=== PATIENT | female | born 1985 | race Caucasian/White ===

== ENCOUNTER 2018-10-07 07:00 | Outpatient (CLI) | payer OTHER, SELFPAY ==
[2018-10-07 12:07] LABS: ALT 22 U/L (12-78); AST 21 U/L (15-37); Albumin 4.2 g/dL (3.4-5.0); Alkaline Phosphatase 58 U/L (46-116); Anion Gap 10.7 mmol/L (3-11); BUN 16 mg/dL (7-18); Bilirubin, Total 0.4 mg/dL (0.2-1.0); CO2 25.3 mmol/L (21.0-32.0); CREATININE 0.86 mg/dL (0.55-1.02); Calcium 10.4 mg/dL (8.5-10.1); Chloride 104 mmol/L (98-107); Cholesterol 188 mg/dL (50-200); Glucose 89 mg/dL (70-100); HCG Quant, Pregnancy 766 mIU/mL (1-3); HDL Cholesterol 51 mg/dL (40-60); LDL CHOLESTEROL 126 mg/dL (<100); Potassium 4.6 mmol/L (3.5-5.1); Sodium 140 mmol/L (136-145); TSH 2.12 uIU/mL (0.358-3.74); Total Protein 7.6 g/dL (6.4-8.2); Triglyceride 54 mg/dL (30-150)
[2018-10-07 12:28] LABS: FREE T4 0.89 ng/dL (0.76-1.46)
== END 2018-10-07 07:20 ==
PROVIDERS: PCP Nurse Practitioner Family; Visit Provider Nurse Practitioner Family
DX: Z00.00 Encounter for general adult medical examination without abnormal findings (principal); Z32.01 Encounter for pregnancy test, result positive
CPT/HCPCS: 36415; 80053; 80061; 83721; 84439; 84443; 84702

== ENCOUNTER 2018-11-23 12:07 | Outpatient (CLI) | payer OTHER, SELFPAY ==
[2018-11-23 13:00] LABS: Abs Immature Grans 0.02 k/cumm (0.0-0.09); Absolute Basophil Count 0.02 k/cumm (0.0-0.2); Absolute Eosinophil Count 0.11 k/cumm (0.0-0.7); Absolute Monocyte Count 0.71 k/cumm (0.11-0.7); Basophils % 0.2; Eosinophils % 1.1; HCT 41.2 % (36.0-46.0); Immature Grans % 0.2; Lymphocytes % 30.5; Mean Corpuscular Hemoglobin 31.9 pg (27.0-33.0); Mean Corpuscular Volume 93.8 fL (80-95); Mean Platelet Volume 10.3 fL (8.0-11.0); Platelet Count 291 x1000/uL (130-400); RBC 4.39 m/cumm (4.00-5.20); RBC Distribution Width 12.8 % (11.7-14.6); White Blood Cell Count 10.16 k/cumm (4.4-10.8)
[2018-11-23 13:59] LABS: ALT 25 U/L (12-78); AST 19 U/L (15-37); Albumin 4.4 g/dL (3.4-5.0); Alkaline Phosphatase 60 U/L (46-116); Bilirubin, Direct 0.08 mg/dL (0.00-0.20); Bilirubin, Total 0.3 mg/dL (0.2-1.0); CREATININE 0.64 mg/dL (0.55-1.02); TSH (W/Ref FT4) 0.84 uIU/mL (0.358-3.74); Total Protein 8.2 g/dL (6.4-8.2); Uric Acid 3.6 mg/dL (2.6-6.0)
[2018-11-24 10:52] LABS: Hepatitis B Surface Ag Negative (NEGAT); Hepatitis C Ab w Rflx HCV PCR Negative (NEGAT)
[2018-11-24 11:05] LABS: HIV-1/2 Ag & Ab Screen Negative (NEGAT)
[2018-11-24 11:30] LABS: Varicella IgG Antibody Negative
[2018-11-24 11:32] LABS: Rubella IgG Ab (UVM) Positive
[2018-11-24 11:40] LABS: Syphilis Serology (RPR) Negative (Negative)
== END 2018-11-23 12:27 ==
PROVIDERS: PCP Nurse Practitioner Family; Visit Provider Advanced Practice Midwife
DX: Z34.91 Encounter for supervision of normal pregnancy, unspecified, first trimester (principal); Z11.4 Encounter for screening for human immunodeficiency virus [HIV]; Z11.59 Encounter for screening for other viral diseases; Z01.84 Encounter for antibody response examination
CPT/HCPCS: 36415; 80055; 80076; 86787; 86803; 86850; 86900; 86901; 87340; 87389; 82565; 84443; 84550; 86592; 86762

== ENCOUNTER 2018-11-23 12:36 | Outpatient (REF) | payer OTHER, SELFPAY ==
[2018-11-23 13:50] LABS: *AMPHETAMINES SCREEN URINE Negative (Negative); *BARBITURATES SCREEN URINE Negative (Negative); *BENZODIAZEPINES SCREEN URINE Negative (Negative); Cannabinoids THC Negative (Negative); Cocaine Screen,Urine Negative (Negative); METHADONE URINE SCREEN Negative (Negative); OPIATES URINE SCREEN Negative (Negative)
[2018-11-23 13:51] LABS: Tricyclic Antidepressants Negative (Negative)
[2018-11-24 14:25] LABS: Chlamydia Result Negative; GC Result Negative; Specimen Description CERVIX
[2018-11-27 08:25] LABS: Buprenorphine Negative; Norbuprenorphine Negative
== END 2018-11-23 12:56 ==
LOC: LBN 12:36
PROVIDERS: PCP Nurse Practitioner Family; Visit Provider Advanced Practice Midwife
DX: Z34.91 Encounter for supervision of normal pregnancy, unspecified, first trimester (principal); Z11.3 Encounter for screening for infections with a predominantly sexual mode of transmission
CPT/HCPCS: 80307; 87491; 87591; 87086

== ENCOUNTER 2019-01-26 01:03 | Outpatient (CLI) | payer OTHER, SELFPAY ==
--- NOTE | 2019-01-26 13:52 | DI.US_ITS ---
Predicted Gestational Age: Indication/History: SURVEY,Z34.90 20.6 Wks Range: 19.6 to 21.6 Prior US done on: Determined by: First US LMP History EDC by prior US: 06/09/19 For multiple gestations: Baby PLACENTA: Grade: 0-1 Location: Anterior Posterior X PRESENTATION: RT LT LOW LYING PREVIA Cephalic Trans (Head RT LT ) Varied X Breech BIOMETRY: Anatomy Identified: BPD: 47 mm 20.1 wks 4 chamber Heart X Heart Rate 143 BPM HC: 178 mm 20.2 wks LVOT X Post Fossa X AC: 150 mm 20.2 wks RVOT X Ventricles X FL: 32 mm 19.6 wks Stomach X Nose X Bladder X Lips X Cisterna Magna: 3 mm CI: 81.8 Kidneys X Palate X Cerebellum: 1.96 mm 3 vessel cord X Spine X EFW: 330 grms 12TH % Cord Insertion X NS= not seen Composite Age (US) 20.1 wks Many abnormalities cannot be diagnosed. A normal exam does not exclude congenital abnormality. EDC by US 06/14/19 Amniotic Fluid Index: Normal COMMENTS: RUQ: LUQ: RLQ: LLQ: Total: cm Biophysical Profile: Score 0/2 MICHELLE (>2cm) Respirations (>30 sec) Body flexion/extension Extremity flexion/extension TOTAL SCORE The study was carried out according to the usual protocol. Please see the OB ultrasound worksheet for further details.
== END 2019-01-26 01:23 ==
PROVIDERS: PCP Nurse Practitioner Family; Visit Provider Advanced Practice Midwife
DX: Z34.92 Encounter for supervision of normal pregnancy, unspecified, second trimester (principal)
CPT/HCPCS: 76805

== ENCOUNTER 2019-03-24 07:52 | Outpatient (CLI) | payer OTHER, SELFPAY ==
[2019-03-24 08:08] LABS: HCT 36.1 % (36.0-46.0); Mean Corp. HGB Concentration 33.2 g/dL (32.0-36.0); Mean Corpuscular Volume 99.2 fL (80-95); Mean Platelet Volume 10.4 fL (8.0-11.0); Platelet Count 262 x1000/uL (130-400); RBC 3.64 m/cumm (4.00-5.20); RBC Distribution Width 12.6 % (11.7-14.6); White Blood Cell Count 10.71 k/cumm (4.4-10.8)
[2019-03-24 08:18] LABS: Glucose,1 Hr (Glucola) 87 mg/dL (80-140)
== END 2019-03-24 08:12 ==
PROVIDERS: PCP Nurse Practitioner Family; Visit Provider Advanced Practice Midwife
DX: Z34.93 Encounter for supervision of normal pregnancy, unspecified, third trimester (principal)
CPT/HCPCS: 36415; 82950; 85027

== ENCOUNTER 2019-04-21 09:07 | Outpatient (CLI) | payer OTHER, SELFPAY ==
[2019-04-21 10:04] LABS: HCT 37.1 % (36.0-46.0); HGB 12.7 g/dL (12.0-15.5); Mean Corp. HGB Concentration 34.2 g/dL (32.0-36.0); Mean Corpuscular Hemoglobin 33.7 pg (27.0-33.0); Mean Corpuscular Volume 98.4 fL (80-95); Mean Platelet Volume 10.5 fL (8.0-11.0); Platelet Count 268 x1000/uL (130-400); RBC 3.77 m/cumm (4.00-5.20); RBC Distribution Width 12.9 % (11.7-14.6); White Blood Cell Count 11.57 k/cumm (4.4-10.8)
[2019-04-21 10:58] LABS: ALT 58 U/L (14-59); AST 40 U/L (15-37); Albumin 3.1 g/dL (3.4-5.0); Alkaline Phosphatase 92 U/L (46-116); BUN 6 mg/dL (7-18); Bilirubin, Total 0.2 mg/dL (0.2-1.0); CREATININE 0.63 mg/dL (0.55-1.02); Calcium 9.3 mg/dL (8.5-10.1); Chloride 103 mmol/L (98-107); Glucose 76 mg/dL (70-100); Potassium 4.3 mmol/L (3.5-5.1); Sodium 138 mmol/L (136-145); Total Protein 6.8 g/dL (6.4-8.2); Uric Acid 4.1 mg/dL (2.6-6.0)
[2019-04-21 14:52] LABS: COMMENT (LAB VIEW ONLY) 27.39 mg/dL; Prot/Crea Ur Ratio 0.29
== END 2019-04-21 09:27 ==
LOC: LBO 09:16 → LBN 13:59
PROVIDERS: PCP Nurse Practitioner Family; Visit Provider Advanced Practice Midwife
DX: O14.93 Unspecified pre-eclampsia, third trimester (principal)
CPT/HCPCS: 36415; 80053; 85027; 82565; 84156; 84550

== ENCOUNTER 2019-04-21 09:22 | Outpatient (CLI) | payer OTHER, SELFPAY | END 2019-04-21 09:42 | PROVIDERS: PCP Nurse Practitioner Family; Visit Provider Advanced Practice Midwife | DX: O26.893 Other specified pregnancy related conditions, third trimester (principal); R03.0 Elevated blood-pressure reading, without diagnosis of hypertension; Z87.59 Personal history of other complications of pregnancy, childbirth and the puerperium; Z82.49 Family history of ischemic heart disease and other diseases of the circulatory system; Z3A.33 33 weeks gestation of pregnancy | CPT/HCPCS: 59025 ==

== ENCOUNTER 2019-04-22 16:03 | Outpatient (REF) | payer OTHER, SELFPAY ==
[2019-04-22 17:15] LABS: PROTEIN < 6.0 mg/dL (0.0-11.9); Total Volume 4250 ml
== END 2019-04-22 16:23 ==
LOC: LBN 16:03
PROVIDERS: PCP Nurse Practitioner Family; Visit Provider Advanced Practice Midwife
DX: Z34.93 Encounter for supervision of normal pregnancy, unspecified, third trimester (principal)
CPT/HCPCS: 81050; 84155

== ENCOUNTER 2019-04-23 09:25 | Outpatient (CLI) | payer OTHER, SELFPAY ==
[2019-04-23 09:54] LABS: HCT 36.2 % (36.0-46.0); HGB 12.1 g/dL (12.0-15.5); Mean Corp. HGB Concentration 33.4 g/dL (32.0-36.0); Mean Corpuscular Hemoglobin 33.2 pg (27.0-33.0); Mean Corpuscular Volume 99.5 fL (80-95); Mean Platelet Volume 10.5 fL (8.0-11.0); Platelet Count 264 x1000/uL (130-400); RBC 3.64 m/cumm (4.00-5.20); White Blood Cell Count 11.26 k/cumm (4.4-10.8)
[2019-04-23 10:59] LABS: ALT 50 U/L (14-59); AST 32 U/L (15-37); Albumin 2.8 g/dL (3.4-5.0); Alkaline Phosphatase 89 U/L (46-116); Anion Gap 10.1 mmol/L (3-11); BUN 8 mg/dL (7-18); Bilirubin, Total 0.2 mg/dL (0.2-1.0); CO2 24.9 mmol/L (21.0-32.0); CREATININE 0.64 mg/dL (0.55-1.02); Calcium 8.8 mg/dL (8.5-10.1); Chloride 104 mmol/L (98-107); Glucose 77 mg/dL (70-100); Potassium 4.2 mmol/L (3.5-5.1); Sodium 139 mmol/L (136-145); Total Protein 6.4 g/dL (6.4-8.2); Uric Acid 4.2 mg/dL (2.6-6.0)
[2019-04-23 11:52] LABS: PROTEIN < 6.0 mg/dL
[2019-04-23 11:53] LABS: COMMENT (LAB VIEW ONLY) < 13.00 mg/dL
== END 2019-04-23 09:45 ==
PROVIDERS: PCP Nurse Practitioner Family; Visit Provider Advanced Practice Midwife
DX: O14.93 Unspecified pre-eclampsia, third trimester (principal)
CPT/HCPCS: 36415; 80053; 85027; 82565; 84156; 84550

== ENCOUNTER 2019-04-23 11:12 | Outpatient (CLI) | payer OTHER, SELFPAY ==
[2019-04-23] MEDS: Betamet Acet/Betamet Na Ph Inj. 30 MG/5 ML 12 MG IM (12:21)
== END 2019-04-23 11:32 ==
PROVIDERS: PCP Nurse Practitioner Family; Visit Provider Advanced Practice Midwife
DX: O13.3 Gestational [pregnancy-induced] hypertension without significant proteinuria, third trimester (principal); Z3A.33 33 weeks gestation of pregnancy
CPT/HCPCS: 59025; J0702

== ENCOUNTER 2019-04-24 14:19 | Outpatient (CLI) | payer OTHER, SELFPAY ==
[2019-04-24] MEDS: Betamet Acet/Betamet Na Ph Inj. 30 MG/5 ML 12 MG IM (14:29)
== END 2019-04-24 14:39 ==
PROVIDERS: PCP Nurse Practitioner Family; Visit Provider Advanced Practice Midwife
DX: O13.3 Gestational [pregnancy-induced] hypertension without significant proteinuria, third trimester (principal); Z3A.33 33 weeks gestation of pregnancy
CPT/HCPCS: 96372; G0378; J0702

== ENCOUNTER 2019-04-26 09:15 | Outpatient (CLI) | payer OTHER, SELFPAY | END 2019-04-26 09:35 | PROVIDERS: PCP Nurse Practitioner Family; Visit Provider Advanced Practice Midwife | DX: O13.3 Gestational [pregnancy-induced] hypertension without significant proteinuria, third trimester (principal); Z3A.33 33 weeks gestation of pregnancy | CPT/HCPCS: 59025 ==

== ENCOUNTER 2019-04-29 13:11 | Outpatient (CLI) | payer OTHER, SELFPAY ==
[2019-04-29 13:32] LABS: HCT 38.7 % (36.0-46.0); Mean Corp. HGB Concentration 33.6 g/dL (32.0-36.0); Mean Corpuscular Hemoglobin 33.2 pg (27.0-33.0); Mean Platelet Volume 10.4 fL (8.0-11.0); Platelet Count 271 x1000/uL (130-400); RBC 3.91 m/cumm (4.00-5.20); White Blood Cell Count 11.54 k/cumm (4.4-10.8)
[2019-04-29 14:25] LABS: COMMENT (LAB VIEW ONLY) 17.21 mg/dL; PROTEIN < 6.0 mg/dL
[2019-04-29 14:36] LABS: ALT 33 U/L (14-59); AST 25 U/L (15-37); Albumin 3.1 g/dL (3.4-5.0); Alkaline Phosphatase 99 U/L (46-116); Anion Gap 9.7 mmol/L (3-11); BUN 8 mg/dL (7-18); Bilirubin, Total 0.2 mg/dL (0.2-1.0); CO2 27.3 mmol/L (21.0-32.0); CREATININE 0.71 mg/dL (0.55-1.02); Calcium 10.2 mg/dL (8.5-10.1); Chloride 101 mmol/L (98-107); Glucose 84 mg/dL (70-100); Sodium 138 mmol/L (136-145); Total Protein 6.8 g/dL (6.4-8.2); Uric Acid 4.3 mg/dL (2.6-6.0)
== END 2019-04-29 13:31 ==
PROVIDERS: Advanced Practice Midwife; PCP Nurse Practitioner Family; Visit Provider Advanced Practice Midwife
DX: O14.93 Unspecified pre-eclampsia, third trimester (principal); O13.3 Gestational [pregnancy-induced] hypertension without significant proteinuria, third trimester
CPT/HCPCS: 36415; 80053; 85027; 82565; 84156; 84550

== ENCOUNTER 2019-04-29 13:33 | Outpatient (CLI) | payer OTHER, SELFPAY | END 2019-04-29 13:53 | PROVIDERS: PCP Nurse Practitioner Family; Visit Provider Advanced Practice Midwife | DX: O13.3 Gestational [pregnancy-induced] hypertension without significant proteinuria, third trimester (principal); Z3A.34 34 weeks gestation of pregnancy | CPT/HCPCS: 59025 ==

== ENCOUNTER 2019-05-03 13:12 | Outpatient (CLI) | payer OTHER, SELFPAY | END 2019-05-03 13:32 | PROVIDERS: PCP Nurse Practitioner Family; Visit Provider Advanced Practice Midwife | DX: O13.3 Gestational [pregnancy-induced] hypertension without significant proteinuria, third trimester (principal); Z3A.34 34 weeks gestation of pregnancy | CPT/HCPCS: 59025 ==

== ENCOUNTER 2019-05-06 13:11 | Outpatient (CLI) | payer OTHER, SELFPAY | END 2019-05-06 13:31 | PROVIDERS: PCP Nurse Practitioner Family; Visit Provider Advanced Practice Midwife | DX: O13.3 Gestational [pregnancy-induced] hypertension without significant proteinuria, third trimester (principal); Z3A.35 35 weeks gestation of pregnancy | CPT/HCPCS: 59025 ==

== ENCOUNTER 2019-05-06 14:52 | Outpatient (CLI) | payer OTHER, SELFPAY ==
[2019-05-06 15:37] LABS: HCT 37.1 % (36.0-46.0); HGB 12.4 g/dL (12.0-15.5); Mean Corp. HGB Concentration 33.4 g/dL (32.0-36.0); Mean Corpuscular Hemoglobin 33.2 pg (27.0-33.0); Mean Corpuscular Volume 99.5 fL (80-95); Mean Platelet Volume 10.5 fL (8.0-11.0); Platelet Count 254 x1000/uL (130-400); RBC 3.73 m/cumm (4.00-5.20); RBC Distribution Width 13.1 % (11.7-14.6); White Blood Cell Count 11.56 k/cumm (4.4-10.8)
[2019-05-06 17:11] LABS: ALT 46 U/L (14-59); AST 27 U/L (15-37); Albumin 2.8 g/dL (3.4-5.0); Alkaline Phosphatase 103 U/L (46-116); Anion Gap 11.2 mmol/L (3-11); BUN 8 mg/dL (7-18); Bilirubin, Total 0.2 mg/dL (0.2-1.0); CO2 24.8 mmol/L (21.0-32.0); CREATININE 0.62 mg/dL (0.55-1.02); Chloride 104 mmol/L (98-107); Glucose 84 mg/dL (70-100); Potassium 3.9 mmol/L (3.5-5.1); Sodium 140 mmol/L (136-145); Total Protein 6.2 g/dL (6.4-8.2); Uric Acid 4.1 mg/dL (2.6-6.0)
== END 2019-05-06 15:12 ==
PROVIDERS: PCP Nurse Practitioner Family; Visit Provider Advanced Practice Midwife
DX: O14.93 Unspecified pre-eclampsia, third trimester (principal); O13.3 Gestational [pregnancy-induced] hypertension without significant proteinuria, third trimester
CPT/HCPCS: 36415; 80053; 85027; 84550

== ENCOUNTER 2019-05-06 16:32 | Outpatient (REF) | payer OTHER, SELFPAY ==
[2019-05-06 18:21] LABS: PROTEIN < 6.0 mg/dL
== END 2019-05-06 16:52 ==
LOC: LBN 16:32
PROVIDERS: PCP Nurse Practitioner Family; Visit Provider Advanced Practice Midwife
DX: O14.93 Unspecified pre-eclampsia, third trimester (principal)
CPT/HCPCS: 82565; 84156

== ENCOUNTER 2019-05-10 01:52 | Outpatient (CLI) | payer OTHER, SELFPAY ==
--- NOTE | 2019-05-10 14:57 | DI.US_ITS ---
EXAM: US OB MICHELLE WEIGHT CLINICAL HISTORY: Gestational Hypertension,z34.90 TECHNIQUE: Ultrasound performed using standard protocol. COMPARISON: No exams were available for comparison FINDINGS: There is a single living intrauterine gestation. Estimated sonographic age is 33 weeks 4 days. The fetus is in the cephalic presentation. heart rate is 131 beats per minute. Estimated feta l weight is 2187 grams. The placenta is posterior without evidence of previa. Amniotic fluid index is 19.9 cm. This is within normal limits. Umbilical artery Doppler examination is between the 50th and 95th percentiles. IMPRESSION: Single living intrauterine gestation. Estimated sonographic age is 33 weeks 4 days.
== END 2019-05-10 02:12 ==
PROVIDERS: PCP Nurse Practitioner Family; Visit Provider Advanced Practice Midwife
DX: O13.3 Gestational [pregnancy-induced] hypertension without significant proteinuria, third trimester (principal)
CPT/HCPCS: 76816

== ENCOUNTER 2019-05-10 15:59 | Outpatient (CLI) | payer OTHER, SELFPAY | END 2019-05-10 16:19 | PROVIDERS: PCP Nurse Practitioner Family; Visit Provider Advanced Practice Midwife | DX: O13.3 Gestational [pregnancy-induced] hypertension without significant proteinuria, third trimester (principal); Z3A.35 35 weeks gestation of pregnancy | CPT/HCPCS: 59025 ==

== ENCOUNTER 2019-05-13 10:34 | Outpatient (CLI) | payer OTHER, SELFPAY | END 2019-05-13 10:54 | PROVIDERS: PCP Nurse Practitioner Family; Visit Provider Advanced Practice Midwife | DX: O13.3 Gestational [pregnancy-induced] hypertension without significant proteinuria, third trimester (principal); Z3A.36 36 weeks gestation of pregnancy | CPT/HCPCS: 59025 ==

== ENCOUNTER 2019-05-13 14:53 | Outpatient (REF) | payer OTHER, SELFPAY ==
[2019-05-13 17:21] LABS: PROTEIN 6.6 mg/dL
[2019-05-13 17:47] LABS: Prot/Crea Ur Ratio 0.21
[2019-05-13 18:26] LABS: *AMPHETAMINES SCREEN URINE Negative (Negative); *BARBITURATES SCREEN URINE Negative (Negative); *BENZODIAZEPINES SCREEN URINE Negative (Negative); Cannabinoids THC Negative (Negative); Cocaine Screen,Urine Negative (Negative); METHADONE URINE SCREEN Negative (Negative); OPIATES URINE SCREEN Negative (Negative)
[2019-05-13 18:34] LABS: Tricyclic Antidepressants Negative (Negative)
[2019-05-17 11:49] LABS: Buprenorphine Negative; Norbuprenorphine Negative
== END 2019-05-13 15:13 ==
LOC: LBN 14:53
PROVIDERS: PCP Nurse Practitioner Family; Visit Provider Advanced Practice Midwife
DX: O13.3 Gestational [pregnancy-induced] hypertension without significant proteinuria, third trimester (principal); Z36.85 Encounter for antenatal screening for Streptococcus B; O14.93 Unspecified pre-eclampsia, third trimester
CPT/HCPCS: 80307; 82565; 84156; 87081

== ENCOUNTER 2019-05-13 15:08 | Outpatient (CLI) | payer OTHER, SELFPAY ==
[2019-05-13 15:50] LABS: HCT 37.7 % (36.0-46.0); HGB 12.8 g/dL (12.0-15.5); Mean Corpuscular Hemoglobin 33.7 pg (27.0-33.0); Mean Corpuscular Volume 99.2 fL (80-95); Mean Platelet Volume 10.5 fL (8.0-11.0); Platelet Count 260 x1000/uL (130-400); RBC Distribution Width 13.2 % (11.7-14.6); White Blood Cell Count 12.29 k/cumm (4.4-10.8)
[2019-05-13 17:28] LABS: ALT 38 U/L (14-59); AST 24 U/L (15-37); Alkaline Phosphatase 115 U/L (46-116); Anion Gap 9.2 mmol/L (3-11); BUN 8 mg/dL (7-18); Bilirubin, Total 0.1 mg/dL (0.2-1.0); CO2 24.8 mmol/L (21.0-32.0); CREATININE 0.64 mg/dL (0.55-1.02); Calcium 9.5 mg/dL (8.5-10.1); Chloride 103 mmol/L (98-107); Glucose 79 mg/dL (70-100); Potassium 4.1 mmol/L (3.5-5.1); Sodium 137 mmol/L (136-145); Total Protein 6.6 g/dL (6.4-8.2)
== END 2019-05-13 15:28 ==
PROVIDERS: PCP Nurse Practitioner Family; Visit Provider Advanced Practice Midwife
DX: O14.93 Unspecified pre-eclampsia, third trimester (principal)
CPT/HCPCS: 36415; 80053; 85027

== ENCOUNTER 2019-05-17 01:29 | Outpatient (CLI) | payer OTHER, SELFPAY ==
--- NOTE | 2019-05-17 09:11 | DI.US_ITS ---
EXAM: US OB MICHELLE UMBILICAL ARTERY CLINICAL HISTORY: IUGR, TECHNIQUE: Ultrasound performed using standard protocol. COMPARISON: US OB 2-3 trimester from 01/26/2019 US OB MICHELLE WEIGHT from 05/10/2019 FINDINGS: The fetus is in cephalic position. The placenta is posterior and grade 1-2. The amniotic fluid inde x is 14.8. Umbilical artery measurements were performed with values corresponding to the 50th to 95t h percentile range. IMPRESSION: MICHELLE and umbilical artery Doppler measurements are within the normal range.
== END 2019-05-17 01:49 ==
PROVIDERS: PCP Nurse Practitioner Family; Visit Provider Advanced Practice Midwife
DX: O36.5993 Maternal care for other known or suspected poor fetal growth, unspecified trimester, fetus 3 (principal); Z36.89 Encounter for other specified antenatal screening
CPT/HCPCS: 76816; 76820

== ENCOUNTER 2019-05-17 08:03 | Outpatient (CLI) | payer OTHER, SELFPAY | END 2019-05-17 08:23 | PROVIDERS: PCP Nurse Practitioner Family; Visit Provider Advanced Practice Midwife | DX: O13.3 Gestational [pregnancy-induced] hypertension without significant proteinuria, third trimester (principal); Z3A.36 36 weeks gestation of pregnancy | CPT/HCPCS: 59025 ==

== ENCOUNTER 2019-05-19 18:03 | Inpatient (IN) | payer OTHER, SELFPAY ==
[2019-05-19] MEDS: miSOPROStol 25 MCG TAB 50 MCG PO ×2 (18:16→22:23)
[2019-05-19 18:48] LABS: HCT 37.2 % (36.0-46.0); HGB 12.5 g/dL (12.0-15.5); Mean Corp. HGB Concentration 33.6 g/dL (32.0-36.0); Mean Corpuscular Volume 98.2 fL (80-95); Mean Platelet Volume 10.6 fL (8.0-11.0); Platelet Count 265 x1000/uL (130-400); RBC 3.79 m/cumm (4.00-5.20); RBC Distribution Width 13.1 % (11.7-14.6); White Blood Cell Count 11.78 k/cumm (4.4-10.8)
[2019-05-19 20:00] LABS: ALT 29 U/L (14-59); AST 20 U/L (15-37); Albumin 2.7 g/dL (3.4-5.0); Alkaline Phosphatase 111 U/L (46-116); Anion Gap 11.5 mmol/L (3-11); BUN 6 mg/dL (7-18); Bilirubin, Total 0.2 mg/dL (0.2-1.0); CO2 23.5 mmol/L (21.0-32.0); CREATININE 0.64 mg/dL (0.55-1.02); Calcium 9.1 mg/dL (8.5-10.1); Chloride 105 mmol/L (98-107); Glucose 82 mg/dL (70-100); Potassium 3.9 mmol/L (3.5-5.1); Sodium 140 mmol/L (136-145)
[2019-05-20 00:57] LABS: PROTEIN 10.6 mg/dL
[2019-05-20 01:00] LABS: Prot/Crea Ur Ratio 0.14
[2019-05-20] MEDS: miSOPROStol 25 MCG TAB 50 MCG PO (08:19)
[2019-05-20] MEDS: Normal Saline Flush 10 ML SYR (12:51)
[2019-05-20] MEDS: miSOPROStol 50 MCG TAB PO (13:05)
[2019-05-20] MEDS: Penicillin G POT. 5,000,000 UNITS in Normal Saline 100 ML 200 UNITS IVPB (17:40)
[2019-05-20] MEDS: Lactated Ringers 1,000 ML 125 ML IV (17:40)
[2019-05-20] MEDS: Penicillin G POT. 3,000,000 UNITS in Normal Saline 50 ML 100 UNITS IVPB (21:22)
[2019-05-21] MEDS: Normal Saline Flush 10 ML SYR IVP ×2 (02:13→06:15)
[2019-05-21] MEDS: Penicillin G POT. 3,000,000 UNITS in Normal Saline 50 ML 100 UNITS IVPB ×4 (02:17→14:18)
[2019-05-21] MEDS: Lactated Ringers 1,000 ML 125 ML IV ×2 (06:15→14:19)
[2019-05-21] MEDS: FentaNYL/ROPIvacaine 2 mcg/ml and 0.1% 200 ML CADD Cassette EP (10:13)
[2019-05-21] MEDS: Hamamelis Leaf/Glycerin 100 EACH BOX PR (16:14)
[2019-05-22] MEDS: Acetaminophen 325 MG TAB 650 MG PO (00:15)
== END 2019-05-24 12:48 | disposition home or self-care (01) | DRG 807 ==
PROVIDERS: Admitting Provider Advanced Practice Midwife; PCP Nurse Practitioner Family; Visit Provider Advanced Practice Midwife
DX: O13.4 Gestational [pregnancy-induced] hypertension without significant proteinuria, complicating childbirth (principal); Z37.0 Single live birth; Z3A.37 37 weeks gestation of pregnancy; O99.824 Streptococcus B carrier state complicating childbirth; Z79.82 Long term (current) use of aspirin; O75.81 Maternal exhaustion complicating labor and delivery; O32.6XX0 Maternal care for compound presentation, not applicable or unspecified; O69.3XX0 Labor and delivery complicated by short cord, not applicable or unspecified
CPT/HCPCS: 36415; 80053; 85027; 86850; 86900; 86901; 59200; 82565; 84156; J2540; J3490

== ENCOUNTER 2019-07-02 13:55 | Outpatient (REF) | payer OTHER, SELFPAY ==
--- NOTE | 2019-07-02 13:30 | PAPFT_PTH ---
PATIENT: Eli Tejada LOC: BE U#:[id number] AGE/SX: 33/F ROOM: RE07/02/[address]: Nahum Lyles RN : 1985 BED: DIS: 07/02/2019 SPEC #: [id number] RECD: 07/02/19 18:30 STATUS: MARIA TERESA REJulius #: [id number] TONY: 07/02/19 13:[address]: Nahum Lyles DEPT: [facility] Cytology RECD BY: Alejandra Bloom ENTERED: 07/02/19 18:30 SP TYPE: PAPFT JOURDAN DR: Sonja Mahoney, RENNY Tissues: 1 - CX/ENDOCX FOR PAP SMEARS Procedures: PAP THIN PREP/UVM Screening HPV DNA PROBE Comments: [id number]
== END 2019-07-02 14:15 ==
LOC: LBN 13:55
PROVIDERS: PCP Nurse Practitioner Family; Visit Provider Advanced Practice Midwife
DX: Z12.4 Encounter for screening for malignant neoplasm of cervix (principal)
CPT/HCPCS: 88142; 87624

== ENCOUNTER 2020-01-12 04:24 | Outpatient (CLI) | payer OTHER, SELFPAY ==
[2020-01-12 12:35] LABS: Abs Immature Grans 0.01 k/cumm (0.0-0.09); Absolute Basophil Count 0.03 k/cumm (0.0-0.2); Absolute Eosinophil Count 0.21 k/cumm (0.0-0.7); Absolute Lymphocyte Count 3.58 k/cumm (1.2-3.4); Absolute Monocyte Count 0.67 k/cumm (0.11-0.7); Absolute Neutrophil Count 2.66 k/cumm (1.2-6.7); Basophils % 0.4; Eosinophils % 2.9; HCT 43.4 % (36.0-46.0); HGB 14.4 g/dL (12.0-15.5); Immature Grans % 0.1 %; Mean Corp. HGB Concentration 33.2 g/dL (32.0-36.0); Mean Corpuscular Hemoglobin 31.3 pg (27.0-33.0); Mean Corpuscular Volume 94.3 fL (80-95); Mean Platelet Volume 9.7 fL (8.0-11.0); Monocytes % 9.4; Neutrophils % 37.2; Platelet Count 326 x1000/uL (130-400); RBC Distribution Width 12.9 % (11.7-14.6); White Blood Cell Count 7.16 k/cumm (4.4-10.8)
[2020-01-12 14:15] LABS: ALT 26 U/L (14-59); AST 18 U/L (15-37); Albumin 4.5 g/dL (3.4-5.0); Alkaline Phosphatase 87 U/L (46-116); Anion Gap 10.3 mmol/L (3-11); BUN 14 mg/dL (7-18); Bilirubin, Total 0.3 mg/dL (0.2-1.0); CO2 28.7 mmol/L (21.0-32.0); CREATININE 1.04 mg/dL (0.55-1.02); Calcium 10.1 mg/dL (8.5-10.1); Chloride 101 mmol/L (98-107); FREE T4 0.83 ng/dL (0.76-1.46); Glucose 94 mg/dL (74-106); Potassium 4.2 mmol/L (3.5-5.1); Sodium 140 mmol/L (136-145)
== END 2020-01-12 04:44 ==
PROVIDERS: PCP Nurse Practitioner Family; Visit Provider Nurse Practitioner Family
DX: R53.83 Other fatigue (principal)
CPT/HCPCS: 36415; 80053; 84439; 84443; 85025

== ENCOUNTER 2021-12-20 02:30 | Outpatient (CLI) | payer OTHER, SELFPAY ==
[2021-12-20 08:42] LABS: CREATININE 0.9 mg/dL (0.55-1.02); Calculated LDL 111 mg/dL (<100); Cholesterol 171 mg/dL (<200); HDL Cholesterol 38 mg/dL (40-60); Triglyceride 110 mg/dL (<150)
== END 2021-12-20 02:31 | disposition home or self-care (01) ==
LOC: LBO 02:30
PROVIDERS: PCP Nurse Practitioner Family; Visit Provider Nurse Practitioner Family
DX: R79.89 Other specified abnormal findings of blood chemistry (principal); Z13.220 Encounter for screening for lipoid disorders
CPT/HCPCS: 36415; 80061; 82565

== ENCOUNTER 2021-12-21 16:06 | Outpatient (REF) | payer OTHER, SELFPAY ==
--- NOTE | 2021-12-21 15:45 | PAPFT_PTH ---
PATIENT: Eli Tejada LOC: BE U#:[id number] AGE/SX: 36/F ROOM: RE12/21/[address]: Sheryl Blair MD : 1985 BED: DIS: 12/21/2021 SPEC #: [id number] RECD: 12/21/21 17:35 STATUS: MARIA TERESA REJulius #: [id number] TONY: 12/21/21 15:[address]: Sheryl Blair DEPT: [facility] Cytology RECD BY: Alejandra Bloom ENTERED: 12/21/21 17:35 SP TYPE: PAPFT JOURDAN DR: Sonja Mahoney, RENNY Tissues: 1 - CX/ENDOCX FOR PAP SMEARS Procedures: PAP THIN PREP/UVM Screening HPV DNA PROBE Comments: [id number]
== END 2021-12-21 16:07 | disposition home or self-care (01) ==
LOC: LBN 16:06
PROVIDERS: PCP Nurse Practitioner Family; Visit Provider Obstetrics & Gynecology
DX: Z12.4 Encounter for screening for malignant neoplasm of cervix (principal); Z11.51 Encounter for screening for human papillomavirus (HPV)
CPT/HCPCS: 88142; 87624

== ENCOUNTER 2023-04-08 02:42 | Outpatient (CLI) | payer BC, SELFPAY ==
[2023-04-08 12:28] LABS: Anion Gap 9.6 mmol/L (3-11); BUN 12 mg/dL (7-18); CO2 26.4 mmol/L (21.0-32.0); CREATININE 0.9 mg/dL (0.55-1.02); Calcium 9.6 mg/dL (8.5-10.1); Chloride 101 mmol/L (98-107); Glucose 88 mg/dL (74-106); Potassium 3.8 mmol/L (3.5-5.1); Sodium 137 mmol/L (136-145)
== END 2023-04-08 02:43 | disposition home or self-care (01) ==
LOC: LBO 02:42
PROVIDERS: PCP Nurse Practitioner Family; Visit Provider Nurse Practitioner Family
DX: I10 Essential (primary) hypertension (principal)
CPT/HCPCS: 36415; 80048

== ENCOUNTER 2023-12-30 05:01 | Outpatient (CLI) | payer OTHER, SELFPAY ==
[2023-12-30 12:31] LABS: Hemoglobin A1C 5.4 % (<5.7)
[2023-12-30 12:54] LABS: Anion Gap 7.3 mmol/L (3-11); BUN 9 mg/dL (7-18); CO2 30.7 mmol/L (21.0-32.0); CREATININE 0.9 mg/dL (0.55-1.02); Calcium 9.7 mg/dL (8.5-10.1); Calculated LDL 125 mg/dL (<100); Chloride 101 mmol/L (98-107); Cholesterol 193 mg/dL (<200); Estimated GFR 84.97 (mL/min/1.73m2); Glucose 83 mg/dL (74-106); HDL Cholesterol 43 mg/dL (40-60); Potassium 3.7 mmol/L (3.5-5.1); Sodium 139 mmol/L (136-145); Triglyceride 129 mg/dL (<150)
[2023-12-31 09:52] LABS: HBs Antibody, Quant 803.4 mIU/mL (See Note); Hepatitis B Surface Ab Positive (See Note)
[2023-12-31 10:46] LABS: HIV-1/2 Ag & Ab Screen Negative (Negative)
== END 2023-12-30 05:02 | disposition home or self-care (01) ==
LOC: LBO 05:02
PROVIDERS: PCP Nurse Practitioner Family; Visit Provider Nurse Practitioner Family
DX: Z00.00 Encounter for general adult medical examination without abnormal findings (principal)
CPT/HCPCS: 36415; 80048; 80061; 86706; 87389; 83036

== ENCOUNTER 2024-05-12 21:26 | Emergency (ER) | payer OTHER, SELFPAY ==
--- NOTE | 2024-05-12 21:15 | RT.EKG_ITS ---
APPROVED REPORT Exam: Resting ECG Reason for Exam: Chest pain Patient Location: E HR:81 bpm ECG Measurements Heart Rate 81 AXIS KS 117 P 30 QRSd 95 QRS -16 QT 388 T 42 QTc 451 Conclusion Sinus rhythm...normal P axis, V-rate 60- 99 Narrow complex normal sinus rhythm at a rate of 81. Normal axis. Shortened KS interval 172 ms. No obvious delta wave. QTc within normal limits. T wave flattening in lead aVL and lead III. No acute ST segment abnormalities. No acute injury pattern. No prior for comparison.
[2024-05-12 21:32] VITALS: BP 171/112; PULSE 98; RESP 20; O2SAT 98
--- NOTE | 2024-05-12 21:39 | W.ED.GENAD ---
Discharge Plan Disposition Patient Disposition: Home Discharge Details Clinical Impression: Elevated blood pressure reading with diagnosis of hypertension Primary Care Provider: Sonja Mahoney ED Provider: Brandon Dang Home Meds and New Rx's Prescriptions: Continued othrfssyccfv-yorb-mwnat acid 18-400 mg-mcg tablet 1 tab PO DAILY norethindrone (contraceptive) 0.35 mg tablet 0.35 mg PO DAILY Qty: 84 3RF acetaminophen [Tylenol Extra Strength] 500 mg tablet 500 mg PO Q6H PRN Airborne (ascorbate sodium) 334-1.7 mg tablet,chewable 2 tab PO DAILY bupropion HCl 150 mg tablet extended release 24 hr 300 mg PO DAILY Qty: 180 3RF losartan 50 mg tablet 50 mg PO DAILY Qty: 90 3RF Discharge Instructions Instructions: DASH diet Additional Instructions: You are seen in the emergency department for your high blood pressure. Your blood pressure improved without intervention. As we discussed if you pass out develop chest pain or lightheadedness please return to the emergency department. Otherwise please follow-up with your primary care provider next week. Please continue taking your home medications as previously prescribed. HPI General Date/Time Provider Initiated Documentation: 05/12/24 21:39. HPI Narrative: MDM This is an overall very well-appearing normothermic and not tachycardic 38-year-old female with elevated blood pressure but history and physical reassuring against any endorgan damage for which patient will be discharged with empiric trial of expectant outpatient management. No pain or proportion to suggest necrotizing soft tissue infection. Patient did not have a sudden onset headache to suggest increased risk for subarachnoid hemorrhage so I did not feel that she required a CT scan. No nuchal rigidity to suggest meningitis. No recent generator exposure to suggest increased risk for carbon monoxide toxicity. No chest pain to suggest ACS. No tachycardia calf pain nor shortness of breath to suggest PE so I did not send a D-dimer. No history of falls to suggest increased risk for intracranial hemorrhage. No chiropractic manipulation or neck pain to suggest cervical arterial dissection. I considered obtaining lab work however the patient has not been vomiting so my suspicion for any acute electrolyte abnormalities is low. Patient has been urinating normally without dysuria and frequency so my suspicion is low for UTI and proteinuria so I did not feel that she required assessment of her urinalysis. No cough no fever to suggest pneumonia. Patient and her and I discussed that she should continue to monitor her symptoms at home. We discussed that she should record her blood pressure daily and follow-up next week with her primary care provider. We discussed that if she developed chest pain shortness of breath any focal areas of weakness or if she had any syncopal episodes that she should return immediately to the ED. Patient's blood pressure improved without intervention in the ED.She understood her return indications and was discharged with empiric trial of expectant outpatient management. HPI This is a 38-year-old female with a history of hypertension arrived to the emergency department via private vehicle in setting of elevated blood pressure. Patient reports that over the course of multiple hours this evening at home she had persistently elevated blood pressures. She had had some chest discomfort and felt that she might have had a strain yesterday. She had been stacking wood recently. She also noted that she had an episode of a headache. She has a history of migraine headaches. She denies headache now. She denies chest pain dizziness vomiting visual changes shortness of breath. She denies routine tobacco, ethanol, and illicits. Family history significant for coronary artery disease in the patient's mother. She has had no recent fevers. No recent change in her medications. This evening she felt weak and she felt cold chills moving down from her head. She did not lose consciousness. She is not recently . Exam General: Well-appearing in no acute distress speaking in complete sentences. Head: Normocephalic, atraumatic. Eye:[Pupils equal, round reactive to light.] Extraocular eye movements intact. No conjunctival injection. No scleral icterus. Ear, nose, mouth, throat: Grossly normal inspection. Normal voice, handling secretions normally. Neck: Trachea midline.No nuchal rigidity. Cardiovascular: Well-perfused distal extremities.Regular rate and rhythm. Respiratory: Nonlabored respiration.Clear lungs bilaterally. Gastrointestinal: Nondistended abdomen. Musculoskeletal: No edema. Moving all 4 extremities spontaneously. Skin: Normal for age and race, grossly normal temperature and turgor. No acute rash. Neurologic: Alert and appropriate, no apparent acute deficits.Cranial nerves II to XII intact grossly. No dysmetria. No dysdiadochokinesia. Psychiatric: Mood and manner are appropriate. Grooming and personal hygiene are appropriate. Related Data Home Medications ?Medication ?Instructions ?Recorded ?Confirmed acetaminophen 500 mg tablet 500 mg PO Q6H PRN 12/21/21 05/12/24 (Tylenol Extra Strength) multivitamin-ferrous 1 tab PO DAILY 12/02/22 05/12/24 fumarate-folic acid 18 mg-400 mcg tablet mv-min-vit C-ascorb 2 tab PO DAILY 04/07/23 05/12/24 Zc-Ajb-Ais-herb #124 334 mg-1.7 mg chewable tablet (Airborne (ascorbate sodium)) norethindrone (contraceptive) 0.35 0.35 mg PO DAILY #84 tabs 12/05/23 05/12/24 mg tablet bupropion HCl 150 mg 24 hr tablet, 300 mg (2 x 150 mg) PO DAILY #180 01/09/24 05/12/24 extended release tabs losartan 50 mg tablet 50 mg PO DAILY #90 tabs 05/03/24 05/12/24 Previous Rx's ?Medication ?Instructions ?Recorded norethindrone (contraceptive) 0.35 0.35 mg PO DAILY #84 tabs 12/05/23 mg tablet bupropion HCl 150 mg 24 hr tablet, 300 mg (2 x 150 mg) PO DAILY #180 01/09/24 extended release tabs losartan 50 mg tablet 50 mg PO DAILY #90 tabs 05/03/24 Allergies Allergy/AdvReac Type Severity Reaction Status Date / Time No Known Allergies Allergy Verified 05/12/24 21:39 General Stated Complaint: Chest Pain MENA: 3 Course Vital Signs Vital signs: Vital Signs Pulse 98 H 05/12/24 21:32 Respiratory Rate 20 05/12/24 21:32 Blood Pressure 171/112 H 05/12/24 21:32 Pulse Oximetry 98 05/12/24 21:32 Pulse 98 H 05/12/24 21:32 Respiratory Rate 20 05/12/24 21:32 Respiratory Effort Normal 05/12/24 21:38 Blood Pressure 171/112 H 05/12/24 21:32 Blood Pressure Position Sitting 05/12/24 21:32 Pulse Oximetry 98 05/12/24 21:32 Oxygen Delivery Method Room Air 05/12/24 21:32 Oxygen Flow Rate 0 05/12/24 21:32 Medical Decision Making Quality:SDOH Health Related Social Needs: No Data to Display PFSH All Active Problems (Updated 05/12/24 @ 22:17 by Brandon Dang MD) Elevated blood pressure reading with diagnosis of hypertension (Acute) Hypertension (Chronic) Hyperlipidemia (Chronic) Generalized anxiety disorder (Chronic) Obesity (Chronic) Medical History (Updated 05/12/24 @ 22:17 by Brandon Dang MD) GERD (gastroesophageal reflux disease) Surgical History S/P hernia repair (~1987) Family History Mother Essential hypertension Heart disease Myocardial infarction Father Parkinson disease Hyperlipidemia Hypertension Sister Hyperlipidemia Maternal Grandfather Hyperlipidemia Heart disease Essential hypertension Type 2 diabetes mellitus Maternal Grandmother Type 2 diabetes mellitus Essential hypertension Paternal Grandfather , in his 70s Alzheimer disease Paternal Grandmother , in her 70s Parkinson disease Paternal Aunt Breast cancer Daughter No problems noted. Social History Smoking/Tobacco Use Status: Never Tobacco: How many years used: 2 Smoking risk assessment performed?: Yes Alcohol Intake: current Alcohol Intake frequency: holidays/special occasions only Alcohol type: beer Drug use: Never Substance use type: does not use Adopted: Yes ([employer] repairing old isabella) Caregiver/Support person: No Household members: spouse and children Housing: house Communication Needs: None Do you need help understanding health information?: Rarely Pets and animals: Yes Pets and animals: dog(s) Sexually active: Yes Do you think of yourself as: straight/heterosexual Current gender identity: female What is your relationship status?: How often do you talk on the phone with friends or family?: three or more times per week How often do you get together with friends or relatives?: once per week How often do you attend voodoo or holiness services?: 4 or more times per year Do you belong to any clubs or organized social groups?: no Panel score (0-1 are the most socially isolated patients): 3 What type of physical activity do you participate in: walking and running Duration: 30-45 minutes/day Frequency: 5-6 times per week Pam/Mormon: No preference Special pam needs: No Seatbelt use: always Drive intox or ride w/intox fast food delivery driver: No Do you feel safe in your relationship?: Yes Female Reproductive History Menstrual Age of Menarche: 14 control method: pills History History 1 Para 1 Hx # Term Pregnancies 0 Multiple births 0 Hx # Pregnancies 0 Ectopic pregnancies 0 AB induced 0 Hx Number of Living Children 1 AB spontaneous 0 Past Pregnancies Del. Date GA/Weeks # Preg Succ Route Wgt Sex Labor Lgth Anesthesia Location Prov Complic 05/21/19 37 No vaginal 2324.661 g Female regional [facility] CNM Delivery Date: 05/21/19 Last Updated by: Jennifer Young LPN Induced at for IUGR; Gestational HTN PAWSS Have you Been Recently Intoxicated or Drunk Within the Last 30 days?: No Have you Ever Experienced Previous Episodes of Alcohol Withdrawal?: No Have you ever Experienced Withdrawal Seizures?: No Have you ever Experienced Delirium Tremens(DT)s?: No Have you ever undergone Alcohol Rehabilitation Treatment (i.e, inpt ot outpatient treatment programs)?: No Have you ever Experienced Blackouts?: No Have you ever Combined Alcohol with other Downers within the last 90 days?: No Have you ever Combined Alcohol with any other Substance of Abuse during the last 90 days?: No Positive Blood Alcohol level on Presentation? [PCS.BAL]: No Evidence of Increased Autonomic Activity (i.e. HR>120, tremor, sweating, agitation, nausea)?: No Result: 0
[2024-05-12 21:40] VITALS: TEMP 36.6
[2024-05-12 22:10] VITALS: BP 148/88
[2024-05-12 22:33] VITALS: BP 130/89; PULSE 71; RESP 18; RESP 20; TEMP 36.6; O2SAT 99
== END 2024-05-12 22:33 | disposition home or self-care (01) ==
PROVIDERS: Emergency Provider Emergency Medicine; PCP Nurse Practitioner Family
DX: R51.9 Headache, unspecified (principal); I10 Essential (primary) hypertension; R07.9 Chest pain, unspecified; E78.5 Hyperlipidemia, unspecified
CPT/HCPCS: 93005; 99283; 93010

== ENCOUNTER 2024-05-14 08:18 | Outpatient (CLI) | payer OTHER, SELFPAY ==
[2024-05-14 12:29] LABS: Abs Immature Grans 0.01 10^3/uL (0.0-0.06); Absolute Basophil Count 0.04 10^3/uL (0.0-0.2); Absolute Eosinophil Count 0.12 10^3/uL (0.0-0.7); Absolute Lymphocyte Count 2.37 10^3/uL (1.2-3.4); Absolute Monocyte Count 0.56 10^3/uL (0.1-0.8); Absolute Neutrophil Count 3.61 10^3/uL (1.2-6.7); Basophils % 0.6 %; Eosinophils % 1.8 %; HCT 41.4 % (36.0-46.0); HGB 13.6 g/dL (11.2-15.7); Immature Grans % 0.1 %; Lymphocytes % 35.3 %; MCH 31.8 pg (27.0-33.0); MCHC 32.9 % (32.0-36.0); MCV 97 fL (80-95); MPV 9.6 fL (8.0-11.0); Monocytes % 8.3 %; Neutrophils % 53.9 %; Platelet Count 330 10^3/uL (130-400); RBC 4.28 10^6/uL (3.93-5.22); RDW 12.6 % (11.7-14.6); RDW-SD 44.7 fL; WBC 6.71 10^3/uL (4.4-10.8)
[2024-05-14 12:45] LABS: Bilirubin Negative (Negative); Blood Negative (Negative); Glucose Negative (Negative); Ketones Negative (Negative); Leukocyte Esterase Negative (Negative); Nitrite Negative (Negative); Urobilinogen 0.2 mg/dL (Up to 0.2)
[2024-05-14 12:50] LABS: Clarity Cloudy (Clear)
[2024-05-14 12:52] LABS: ALT 22 U/L (14-59); AST 16 U/L (15-37); Albumin 4.1 g/dL (3.4-5.0); Alkaline Phosphatase 69 U/L (46-116); Anion Gap 9.5 mmol/L (3-11); BUN 20 mg/dL (7-18); Bilirubin, Total 0.64 mg/dL (0.2-1.0); CO2 27.5 mmol/L (21.0-32.0); CREATININE 1.1 mg/dL (0.55-1.02); Calcium 9.9 mg/dL (8.5-10.1); Chloride 105 mmol/L (98-107); Estimated GFR 66.78 (mL/min/1.73m2); Glucose 94 mg/dL (74-106); Potassium 4.2 mmol/L (3.5-5.1); Sodium 142 mmol/L (136-145); TSH (W/Ref FT4) 1.29 uIU/mL (0.36-3.74); Total Protein 7.7 g/dL (6.4-8.2)
[2024-05-14 13:15] LABS: COMMENT (LAB VIEW ONLY) 282.38 mg/dL; Microalb ug/mg Crea 9.1 ug/mg Cr
== END 2024-05-14 08:19 | disposition home or self-care (01) ==
LOC: LOS 08:18
PROVIDERS: PCP Nurse Practitioner Family; Referring Provider Nurse Practitioner Family; Visit Provider Nurse Practitioner Family
DX: R07.9 Chest pain, unspecified (principal); R11.0 Nausea; I10 Essential (primary) hypertension
CPT/HCPCS: 36415; 80053; 81003; 82043; 82570; 84443; 85025

== ENCOUNTER 2024-05-27 02:02 | Outpatient (CLI) | payer OTHER, SELFPAY ==
[2024-05-27 15:19] LABS: Anion Gap 9.5 mmol/L (3-11); BUN 15 mg/dL (7-18); CO2 27.5 mmol/L (21.0-32.0); CREATININE 1.1 mg/dL (0.55-1.02); Calcium 9.6 mg/dL (8.5-10.1); Chloride 103 mmol/L (98-107); Estimated GFR 66.78 (mL/min/1.73m2); Glucose 77 mg/dL (74-106); Potassium 3.7 mmol/L (3.5-5.1); Sodium 140 mmol/L (136-145)
== END 2024-05-27 02:03 | disposition home or self-care (01) ==
LOC: LBO 02:02
PROVIDERS: PCP Nurse Practitioner Family; Visit Provider Nurse Practitioner Family
DX: R79.89 Other specified abnormal findings of blood chemistry (principal)
CPT/HCPCS: 36415; 80048

== ENCOUNTER 2024-06-14 16:05 | Outpatient (REF) | payer OTHER, SELFPAY ==
[2024-06-14 21:37] LABS: Bilirubin Negative (Negative); Blood Trace-intact (Negative); Clarity Clear (Clear); Glucose Negative (Negative); Ketones Negative (Negative); Leukocyte Esterase Negative (Negative); Nitrite Negative (Negative); Urobilinogen 0.2 mg/dL (Up to 0.2); pH 6.5 (5-8)
[2024-06-14 21:49] LABS: Bacteria Rare HPF (Negative); C & S Indicated? No; Casts Negative LPF (Negative); Crystals Negative HPF (Negative); Epithelial Cells Few HPF (Negative); Mucus Negative (Negative); RBC 0-2 HPF (0-2); WBC 0-2 HPF (0-5)
[2024-06-14 22:03] LABS: COMMENT (LAB VIEW ONLY) < 13.00 mg/dL
== END 2024-06-14 16:06 | disposition home or self-care (01) ==
LOC: LBN 16:05
PROVIDERS: PCP Nurse Practitioner Family; Visit Provider Nurse Practitioner Family
DX: R79.89 Other specified abnormal findings of blood chemistry (principal)
CPT/HCPCS: 81003; 81015; 82043; 82570

== ENCOUNTER 2024-06-21 13:09 | Outpatient (CLI) | payer OTHER, SELFPAY ==
[2024-06-21] MEDS: Normal Saline - Diluent 50 ML VIAL 25 ML IJ (13:50)
--- NOTE | 2024-06-21 13:50 | DI.MRI_ITS ---
Exam(s) MR ABDOMEN WO/W EXAM: MR ABDOMEN WO/W CLINICAL HISTORY: ? of renal mass on US,f/u abnl us, n28.89 TECHNIQUE: Multiplanar multisequence MRI was performed with both pre and post contrast infused seque nces. Contrast injected sequences were performed following IV injection of 14 cc of Dotarem. COMPARISON: Recent ultrasound 06/04/2024 was reviewed. FINDINGS: VISUALIZED LUNG BASES: No pleural effusions evident. There is no ascites evident. LIVER: No significant focal hepatic lesions evident. BILIARY: There is no obvious gallbladder pathology. The CBD is not dilated. PANCREAS: There is no evidence of pancreatic mass nor dilatation of the pancreatic duct. SPLEEN: Spleen is not enlarged and there are no intrasplenic lesions.Splenic and portal veins are pat ent ADRENALS: There are no significant adrenal masses. KIDNEYS: No solid renal masses. The finding recently described ultrasound in left kidney corresponds to mild dromedary hump. There is a tiny 3 mm benign cortical cyst in the lower half of the left kid jenna. This does not require further workup. There is no hydronephrosis. ABDOMINAL AORTA: Not enlarged and there is no significant para-aortic adenopathy. ANTERIOR ABDOMINAL WALL/GI: There is no evidence of significant anterior abdominal wall hernia in the field of view of this study.Is no evidence of obvious bowel obstruction. OSSEOUS: There are no lytic osseous lesions in the field of view of this study. IMPRESSION: 1. No evidence of solid renal mass. The finding described in left kidney on recent ultrasound corres ponds to a mild dromedary hump. DATA REPOSITORY:
[2024-06-21] MEDS: Gadoterate meglumine 20 ML VIAL 14 ML IVP (13:51)
== END 2024-06-21 13:29 ==
PROVIDERS: PCP Nurse Practitioner Family; Visit Provider Nurse Practitioner Family
DX: N28.89 Other specified disorders of kidney and ureter (principal)
CPT/HCPCS: 74183

== ENCOUNTER 2024-07-12 03:17 | Outpatient (CLI) | payer OTHER, SELFPAY ==
[2024-07-12 18:27] LABS: ALT 29 U/L (14-59); AST 20 U/L (15-37); Albumin 4.1 g/dL (3.4-5.0); Alkaline Phosphatase 87 U/L (46-116); BUN 15 mg/dL (7-18); Bilirubin, Total 0.18 mg/dL (0.2-1.0); CREATININE 0.9 mg/dL (0.55-1.02); Calcium 10.1 mg/dL (8.5-10.1); Chloride 101 mmol/L (98-107); Estimated GFR 84.97 (mL/min/1.73m2); Glucose 74 mg/dL (74-106); Potassium 4.2 mmol/L (3.5-5.1); Sodium 139 mmol/L (136-145); Total Protein 7.3 g/dL (6.4-8.2)
== END 2024-07-12 03:18 | disposition home or self-care (01) ==
LOC: LBO 03:17
PROVIDERS: PCP Nurse Practitioner Family; Visit Provider Nurse Practitioner Family
DX: R79.89 Other specified abnormal findings of blood chemistry (principal)
CPT/HCPCS: 36415; 80053